=== PATIENT | female | born 1965 | race Two or more races ===

== ENCOUNTER 2017-09-13 14:36 | Inpatient (IN) | payer BC, MEDICAID ==
[~2017-09-13] VITALS: Ht 167.6 cm; Wt 65.8 kg
--- NOTE | 2017-09-13 14:40 | NUR ---
PATIENT BIB STRETCHER FROM SECOND FLOOR OF HOSPITAL. PATIENT FOUND IN BATHROOM, POSSIBLE SYNCOPE. PATIENT A/OX 3, BUT LETHARGIC. C/O NAUSEA, VOMITING. BREATHING EVEN AND UNLABORED. NO SOB. VITALS STABLE. SAFETY AND COMFORT MEASURES IN PLACE. AWAITING MD ORDERS.
[2017-09-13] MEDS ORDERED: ONDANSETRON HCL/PF 4 MG/2 ML VIAL ONE (14:43)
[2017-09-13] MEDS ORDERED: IV NS 0.9% 1,000 ML BAG IV ONE (15:00)
[2017-09-13] MEDS ORDERED: ONDANSETRON HCL/PF - ER 4 MG/2 ML VIAL IV ONE (15:00)
[2017-09-13 15:42] LABS: INR 0.88 (0.87-1.13); PROTHROMBIN TIME 9.1 SECS (9.5-12.7)
[2017-09-13 15:44] LABS: ALANINE AMINOTRANSFERASE 25 U/L (12-78); ALBUMIN 3.6 g/dL (3.4-5.0); ALCOHOL, BLOOD < 3 mg/dL (0-0); ALKALINE PHOSPHATASE 80 U/L (46-116); ASPARTATE AMINOTRANSFERASE 39 U/L (15-37); BILIRUBIN,TOTAL 0.2 mg/dL (0.2-1.0); CARBON DIOXIDE 21 mmol/L (21-32); CHLORIDE 108 mmol/L (98-107); CREATININE 0.9 mg/dL (0.6-1.3); GLUCOSE 132 mg/dL (74-106); POTASSIUM 3.7 mmol/L (3.5-5.1); SODIUM SERUM 142 mmol/L (136-145); TOTAL PROTEIN, SERUM 7.8 g/dL (6.4-8.2); UREA NITROGEN, BLOOD 10 mg/dL (7-18)
--- NOTE | 2017-09-13 15:44 | NUR ---
URINE OBTAINED AND SENT TO LAB .
[2017-09-13 15:48] LABS: ACETAMINOPHEN < 2 ug/ml (10-30); SALICYLATE 0.9 mg/dL (2.8-20.0)
[2017-09-13 16:04] LABS: TROPONIN I < 0.017 ng/mL (0.00-0.056)
[2017-09-13 16:05] LABS: HEMATOCRIT 22 % (33-45); MEAN CORPUSCULAR HEMOGLOBIN 19 PG (26.0-33.0); MEAN CORPUSCULAR HGB CONC 29 g/dl (31.0-36.0); MEAN CORPUSCULAR VOLUME 64 fL (82-100); RDW COEFFICIENT OF VARIATION 32.5 (11.5-15.0); RED BLOOD CELL COUNT(AUTO) 3.46 MIL/uL (4.0-5.2); WHITE BLOOD COUNT (AUTO) 8.2 K/uL (4.3-11.0)
[2017-09-13 16:23] LABS: APPEARANCE,URINE CLEAR (CLEAR); BILIRUBIN,URINE NEGATIVE (NEGATIVE); BLOOD, URINE NEGATIVE Ery/uL (NEGATIVE); COLOR,URINE YELLOW (YELLOW); KETONES,URINE NEGATIVE (NEGATIVE); LEUKOCYTE ESTERASE ,URINE NEGATIVE (NEGATIVE); NITRITE, URINE NEGATIVE (NEGATIVE); PH,URINE 8.5 (5.0-8.0); PROTEIN,URINE NEGATIVE (NEGATIVE); UGLUCOSE NEGATIVE (NEGATIVE); UROBILINOGEN,URINE 0.2 EU/dL (0.2)
[2017-09-13 16:31] LABS: HEMOGLOBIN 6.5 g/dL (11.5-14.8)
[2017-09-13 16:32] LABS: PLATELET COUNT (AUTO) 1193 /CMM (150-450)
[2017-09-13 16:46] LABS: THYROID STIMULATING HORMONE 2.584 uIU/mL (0.358-3.74)
--- NOTE | 2017-09-13 16:59 | NUR ---
PATIENT ASSIGNED TO TELE [id number], DX ANEMIA
--- NOTE | 2017-09-13 17:09 | NUR ---
PANEL ON-CALL PAGED
--- NOTE | 2017-09-13 17:37 | NUR ---
REPORT GIVEN TO RNNORIS FOR ADMISSION
--- NOTE | 2017-09-13 17:40 | NUR ---
MS RN REPORT NOTE RECEIVED REPORT FROM BRAD CORONADO FROM EMERGENCY DEPARTMENT. AWAITING FOR THE PATIENT'S ARRIVAL TO THE UNIT.
--- NOTE | 2017-09-13 17:50 | NUR ---
PMP ADMITTING NOTE PATIENT ARRIVED TO THE UNIT VIA GURNEY ACCOMPANIED BY IVONNE SALINAS. PATIENT IS A/0 X3, AGITATED, ANXIOUS. SHIVERS AND STATES SHE IS VERY COLD. PATIENT OFFERED 3 BLANKETS, AND STILL COMPLAINS OF BEING COLD. DAUGHTER AND THE FRIEND AT THE BEDSIDE. WILL CONTINUE TO MONITOR/ASSESS.
[2017-09-13 17:55] VITALS: BP 120/64
[2017-09-13] MEDS ORDERED: MAG HYDROX/AL HYDROX/SIMETH 30 ML UDC PO PRN (18:00)
[2017-09-13] MEDS ORDERED: MAGNESIUM HYDROXIDE 30 ML UDC PO PRN (18:00)
[2017-09-13] MEDS ORDERED: diphenhydrAMINE HCL 50 MG/ML VIAL IV ONE (18:00)
[2017-09-13] MEDS ORDERED: ONDANSETRON HCL/PF 4 MG/2 ML VIAL IVP PRN (18:00)
[2017-09-13] MEDS ORDERED: Z GUARD REMEDY 2 OZ OINT TP PRN (18:00)
[2017-09-13] MEDS ORDERED: HYDROCODONE/APAP 5/325MG 1 EACH TABLET PO PRN (18:00)
[2017-09-13] MEDS ORDERED: ACETAMINOPHEN 325 MG TABLET PO PRN (18:00)
[2017-09-13] MEDS ORDERED: ZOLPIDEM TARTRATE 5 MG TABLET PO PRN (18:00)
--- NOTE | 2017-09-13 18:03 | NUR ---
PATIENT TRANSPORTED TO [facility] VIA ACLS PROTOCOL. RNNORIS TO PROVIDE ANNA.
--- NOTE | 2017-09-13 18:05 | NUR ---
MANAGER COMPETITIVE INTELLIGENCE NOTE PELVIC SUPERVISOR STITCHING DEPARTMENT AT THE BEDSIDE. PATIENT CONSENTED TO TRANSVAGINAL ULTRASOUND.
--- NOTE | 2017-09-13 18:10 | NUR ---
HARBOUR MASTER NOTE DR AG AT THE BEDSIDE.
[2017-09-13 18:17] LABS: EOSINOPHILS % (MANUAL) 1 % (0-4); LYMPHOCYTES % (MANUAL) 24 % (16-48); MONOCYTES % (MANUAL) 7 % (0-11.0); NEUTROPHILS % (MANUAL) 68 (42-76)
--- NOTE | 2017-09-13 18:45 | NUR ---
GATE CUTTER NOTE NOT ADMINISTERING BENADRYL AT THIS TIME. WILL ENDORSE TO THE RETIREMENT VILLAGE MANAGER TO ADMINISTER PRIOR TO BLOOD TRANSFUSION NEEDED.
--- NOTE | 2017-09-13 18:45 | NUR ---
ELEVATING GRADER OPERATOR NOTE DR SANDY, THE ONCOLOGIST AT THE BEDSIDE
--- NOTE | 2017-09-13 19:00 | NUR ---
PLANTING MACHINE CREWMAN NOTE BLOOD BANK CALLED. PATIENT'S BLOOD IS READY. WILL ENDORSE TO THE MICA LAMINATING MACHINE FEEDER.
--- NOTE | 2017-09-13 19:15 | NUR ---
DESKTOP PUBLISHING SPECIALIST NOTE PATIENT IS REFUSING FOR THE RN TO UNCOVER HER TO CHECK FOR THE SKIN INTEGRITY. PATIENT STATES HER SKIN IS INTACT. WILL ENDORSE TO THE NEXT SHIFT TO TRY LATER.
--- NOTE | 2017-09-13 19:30 | NUR ---
RESPIRATORY THERAPY DIRECTOR OPENING NOTES: PATIENT IN BED, ASLEEP AT THIS TIME, ON ROOM AIR, BREATHING EVEN AND UNLABORED. BREATH SOUNDS CLEAR TO AUSCULTATION. PIV OVER L HAND G20 INTACT AND PATENT TO FLUSH, NO SIGNS OF INFILTRATION. REPORT TAKEN FROM NORIS RN THAT PATIENT IS ADMITTED FOR ANEMIA, FOR BLOOD TRANSFUSION. DAUGHTER AND HER FIANCE AT BEDSIDE. ON TELE MONITORING WITH SINUS RHYTHM AT RATE OF 80S. PROVIDED FOR COMFORT AND SAFETY. BED IN LOWEST AND LOCKED POSITION, SIDERAILS UPX3. WILL CONT TO MONITOR.
--- NOTE | 2017-09-13 19:37 | NUR ---
SURVEY COORDINATOR CLOSING NOTE PATEINT IS SLEEPING IN BED EASILY AWAKEN. . BED IS LOCKED, IN LOWEST POSITION, SIDE RAILS UP X 2, CALL LIGHT WITHIN REACH. DAUGHTER AT THE BEDSIDE. EDUCATED PATIENT/DAUGHTER TO CALL FOR HELP USING THE CALL LIGHT. ENDORSED TO CITIZENSHIP INSTRUCTOR NURSE TO COMPLETE INITIAL PHYSICAL ASSESSMENT ONCE THE PATIENT IS AWAKE AND COOPERATIVE. ENDORSED THE THE BLOOD BANK CALLED AND THAT THE BLOOD IS READY. EXTERNAL MONITOR REY SR 81. VS WNL. ENDORSED TO CITIZENSHIP INSTRUCTOR NURSE FOR ANNA.
[2017-09-13 20:00] VITALS: BP 107/56
--- NOTE | 2017-09-13 20:00 | NUR ---
RN NOTES: INFORMED DR SANDY THAT HER STAT LABS (FERRITIN, SERUM DH, TIBC, IRON PANEL) ARE ALREADY DRAWN, EXCEPT FOR FLOW CYTOMETRY, SINCE PER LAB, IT IS A SENDOUT, IT WILL BE DRAWN IN THE AM. DR SANDY NOTED AND SAID IT IS OK TO PROCEED WITH TRANSFUSION.
--- NOTE | 2017-09-13 20:15 | NUR ---
RN NOTES: PATIENT MORE AWAKE AND ENGAGES ACTIVELY IN CONVERSATION NOW, AOX4. PATIENT IS REFUSING BLOOD TRANSFUSION, AND THAT THE CONSENT SHE SIGNED EARLIER WAS SIGNED "BY MISTAKE", SHE SAID SHE THOUGHT IT WAS CONSENT TO INFORM HER FAMILY WHAT HAPPENED. EXPLAINED TO PATIENT THE INDICATION FOR BLOOD TRANSFUSION, AND HER CURRENT HGB LEVEL WHICH IS 6.5. PT STATES THAT SHE DOES NOT WANT IT, GOES TO FURTHER EXPLAIN THAT SHE DID NOT FAINT EARLIER, SHE WAS HAVING VOMITING EPISODE EARLIER AFTER DRINKING A KOFFI WITH BEET JUICE. ALSO ATTRIBUTES CONDITION TO A SOAP CALLED "BUMBLEBEE", WHICH SHE STARTED USING 2 WKS AGO, SAYING THAT IT MAKES HER BLOOD "COAGULATE" MORE AND CAUSE HER TO HAVE "FLUCTUATING" TEMPERATURES. GAVE MORE EDUCATION TO PATIENT RE CRITICAL VALUE OF HER HGB, WELL RISKS OF NOT HAVING TRANSFUSION, PATIENT KEPT REFUSING. DAUGHTER, DAUGHTER'S FIANCE AND MATEUS RN AT BEDSIDE DURING THIS TIME. CHARGE NURSE ALEXIS INFORMED. SHE ALSO WENT TO EDUCATE PATIENT, HOWEVER, PATIENT STILL REFUSED.
--- NOTE | 2017-09-13 20:20 | NUR ---
RN NOTES: DID NOT ADMINISTER DIPHENHYDRAMINE 25 MG IV ORDERED PRIOR TO TRANSFUSION, PATIENT IS REFUSING BT.
[2017-09-13 20:27] VITALS: BP 107/56
--- NOTE | 2017-09-13 21:05 | NUR ---
RN NOTES: CALLED DR SANDHU TO INFORM HIM RE PATIENT'S REFUSAL TO HAVE BLOOD TRANSFUSION. MD NOTED.
[2017-09-13 23:51] VITALS: BP 114/74
[2017-09-14] VITALS: BP 114/74
[2017-09-14] MEDS ORDERED: IV NS 0.9% 1,000 ML IV PRN
[2017-09-14 04:00] VITALS: BP 113/67
[2017-09-14 04:24] VITALS: BP 113/67
--- NOTE | 2017-09-14 06:47 | NUR ---
RN NOTES: PATIENT STATES THAT SHE WANTS TO GO HOME AT THIS TIME, REFUSED AM LAB DRAW. PER PATIENT, SHE FEELS BETTER. EXPLAINED TO HER RISKS OF REFUSING TREATMENT AND LEAVING AMA AT THIS POINT, AND THAT SHE WILL NOT HAVE ACCESS TO HER LAB RESULTS FOR THIS ADMISSION IF SHE GOES AMA. CHARGE NURSE ALEXIS NOTIFIED, CALLED NURSING MAINFRAME SYSTEMS ENGINEER BRENDA. ALSO LEFT MESSAGE TO DAUGHTER, ZEENAT WEI .
--- NOTE | 2017-09-14 07:05 | NUR ---
STAMPING PRESS OPERATOR CLOSING NOTES: PATIENT IN BED, AOX4, ON ROOM AIR, BREATHING EVEN AND UNLABORED. APPEARS CALM AND IN NO DISTRESS. DENIES ANY PAIN/ HEADACHE AT THIS TIME. PIV OVER L HAND INTACT AND INFUSING WELL WITH NS RUNNING AT 75 ML/HR. PROVIDED FOR COMFORT AND SAFETY. MORNING LABS WERE REFUSED, PATIENT STILL REFUSING THE BLOOD TRANSFUSION ORDERED. PATIENT ALSO VERBALIZED PLAN TO LEAVE AMA, BUT IS STILL WAITING FOR DAUGHTER. HOWEVER, PT CANNOT RECALL DTR'S PHONE NUMBER AND THE UMBER LISTED IN FACE SHEET IS WRONG. PROVIDED FOR COMFORT AND SAFETY. BED IN LOWEST AND LOCKED POSITION, SIDERAILS UPX3. WILL ENDORSE TO AM RN FOR ANNA.
[2017-09-14 07:06] VITALS: BP 120/65
[2017-09-14 08:00] VITALS: BP 119/70
--- NOTE | 2017-09-14 13:13 | NUR ---
RN NOTES RESTING QUIETLY IN BED. PATIENT DENIES HEADACHE OR DIZZINESS. HGB 6.5 MG/DL. PATIENT HAS BEEN REFUSING ALL LABS AND BLOOD TRANSFUSION. EXPLAINED IMPORTANCE OF GETTING BLOOD TRANSFUSION AND COMPLIANCE TO MEDICAL PLAN AND TREATMENT BUT PATIENT CONT TO REFUSED CARE. SHE VERBALIZED SHE WOULD GO TO HOSPITAL NEAR HER PLACE FOR EASY ACCESS BY HER FAMILY. EXPLAINED CONSEQUENCES OF LEAVING AGAINST MEDICAL ADVICE AND SHE STILL INSISTED TO GO.AMA FORM SIGNED. IV ACCESS REMOVED AND SECURED SITE WITH PRESSURE DRESSING. CLAIMED NO BELONGING IS MISSING. LEFT HOSPITAL AMBULATORY IN STABLE CONDITION ACCOMPANIED BY DAUGHTER. PATIENT IS THANKFUL OF THE CARE.
[2017-09-14] MEDS ORDERED: SOD FERRIC GLUC 125 MG in IV NS 0.9% 100 ML IV SCH (14:00)
== END 2017-09-14 13:20 | disposition left against medical advice (07) | DRG 760 ==
LOC: ER 14:38 → TELE 17:36 → EDBD 17:36 → MED 09-14 10:21
PROVIDERS: ADMIT Internal Medicine; ATTEND Internal Medicine
DX: D25.9 Leiomyoma of uterus, unspecified (principal); D62 Acute posthemorrhagic anemia; D75.89 Other specified diseases of blood and blood-forming organs; K21.9 Gastro-esophageal reflux disease without esophagitis; N92.0 Excessive and frequent menstruation with regular cycle; R55 Syncope and collapse; N83.202 Unspecified ovarian cyst, left side; R51 Headache
CPT/HCPCS: 36415; 76856-TC; 80048-TC; 80076-TC; 80305; 81000-TC; 82728-TC; 82962-TC; 83540-TC; 83615-TC; 84439-TC; 84443-TC; 84484-TC; 84703-TC; 85025-TC; 85045-TC; 85730-TC; 86850-TC; 86921-TC; 87081-TC; A4606; G0480; J2405; J2916; J7030; J7050; Z7610